=== PATIENT | male | born 2000 | race African-American/Black ===

== ENCOUNTER 2025-03-02 11:10 | Emergency (ER) | payer MEDICAID ==
[~2025-03-02] VITALS: Ht 177.8 cm; Wt 127.0 kg
[2025-03-02] MEDS ORDERED: Ondansetron Hydrochloride 4 MG/2 ML VIAL IV ONE (11:45)
[2025-03-02] MEDS ORDERED: Metoclopramide Hydrochloride 10 MG/2 ML VIAL IV ONE (11:45)
[2025-03-02] MEDS ORDERED: SODIUM CHLORIDE 0.9% 500 ML IV ONE (11:45)
[2025-03-02] MEDS ORDERED: diphenhydrAMINE hydrochloride 50 MG/ML VIAL IV ONE (11:45)
[2025-03-02] MEDS ORDERED: ZYRTEC ALLERGY10 MG PO (11:50)
[2025-03-02 12:05] LABS: BASO # 0.0 10*3/uL (0.0-0.1); BASO % 0.4 % (0.0-1.0); EOS # 0.0 10*3/uL (0.0-0.4); EOS % 0.5 % (1.0-4.0); MEAN CELL VOLUME 90.7 fl (80.0-94.0); MEAN CORPUSCULAR HGB 29.6 pg (27.0-31.0); MEAN PLATELET VOLUME 9.8 fl (9.6-12.3); MONO # 0.5 10*3/uL (0.1-1.0); MONO % 7.3 % (3.0-9.0); NEUT # 5.2 10*3/uL (2.3-7.9); NEUT % 70.1 % (47.0-73.0); NUCLEATED RED BLOOD CELL 0.0 % (0.0-0.0); NUCLEATED RED BLOOD CELL 0.0 10*3/uL (0.0-0.0); PLATELET COUNT AUTOMATED 292 10*3/uL (130-400); RED CELL DISTRI WIDTH 12.0 % (0-14.5)
[2025-03-02 12:27] LABS: BUN 7 mg/dl (9-23); CPK 383 U/L (34-171); SGPT/ALT 19 U/L (5-49)
[2025-03-02] MEDS ORDERED: REGLAN10 M1 PO (14:14)
[2025-03-02] MEDS ORDERED: PROTONIX40 MG PO (14:14)
[2025-03-02] MEDS ORDERED: Ondansetron4 MG PO (14:14)
== END 2025-03-02 14:17 | disposition home or self-care (01) ==
LOC: ED 11:10
PROVIDERS: Emergency Medicine
DX: K29.70 Gastritis, unspecified, without bleeding (principal); Z79.899 Other long term (current) drug therapy